=== PATIENT | female | born 1965 | race Caucasian/White ===

== ENCOUNTER 2016-12-10 14:11 | Emergency (ER) | payer SELFPAY ==
[~2016-12-10] VITALS: Ht 172.7 cm; Wt 51.0 kg
[~2016-12-10 14:11] MED LIST: DIAZ10 PO; LORA-392 PO; REME45TA PO
[2016-12-10 14:15] VITALS: BP 119/74; PULSE 120; RESP 16; TEMP 98.4; O2SAT 98
[2016-12-10] MEDS ORDERED: SODIUM CHLORIDE 0.9% FLUSH 10 ML FLUSH IV FLUSH PRN (14:30)
[2016-12-10 14:34] VITALS: RESP 16; O2SAT 100
[2016-12-10] MEDS ORDERED: HYDR-3535 PO (14:34)
[2016-12-10] MEDS ORDERED: REME30TA PO (14:34)
[2016-12-10] MEDS ORDERED: XANA2TAB2 PO (14:34)
--- NOTE | 2016-12-10 14:37 | PD ---
HPI Chief Complaint: Pain: Acute or Chronic Time Seen by Provider: 14:21 Travel History International Travel<30 days: No Contact w/Intl Traveler<30days: No Traveled to known affect area: No History of Present Illness HPI The patient was seen and examined in the presence of the nurse. Patient complains of abdominal pain. Location is left lower quadrant. Duration is 2 months. Started out mild and she thought it might go away but it is persisted and the last few days has been more severe. She's not had any evaluation other. No alleviating factors. No documented fever. No vomiting or diarrhea. She's been eating without any change in the pain. No urinary complaints. PFSH Past Medical History Hx Anticoagulant Therapy: No Anxiety: Yes Diabetes: No Diminished Hearing: No Tetanus Vaccination: > 5 Years Influenza Vaccination: No ?: Not Menopausal: Yes Ectopic : Yes (20 YEARS AGO) Tubal Ligation: Yes (20 YEARS AGO) Past Surgical History Gynecologic Surgery: Yes (LEFT OOPHRECTOMY) Social History Alcohol Use: No Tobacco Use: Yes (5 CIGS PER DAY) Substance Use: No (DENIES) Allergies-Medications (Allergen,Severity, Reaction): Coded Allergies: No Known Allergies (Verified , 12/10/16) Reported Meds & Prescriptions Reported Meds & Active Scripts Active Reported Lortab (Hydrocodone-Acetaminophen) 10-325 Mg Tab 1 Tab PO BID PRN Xanax (Alprazolam) 2 Mg Tab 2 Mg PO DAILY PRN Remeron (Mirtazapine) 30 Mg Tab 15 Mg PO HS Review of Systems General / Constitutional: No: Fever Eyes: No: Visual changes HENT: No: Headaches Cardiovascular: No: Chest Pain or Discomfort Respiratory: No: Shortness of Breath Gastrointestinal: Positive: Abdominal Pain Genitourinary: No: Dysuria Musculoskeletal: No: Pain Skin: No Rash Neurologic: No: Weakness Psychiatric: No: Depression Endocrine: No: Polydipsia Hematologic/Lymphatic: No: Easy Bruising Physical Exam Narrative GENERAL: Well-nourished, well-developed patient with abdominal pain. SKIN: Focused skin assessment reveals no rash and nodules. Skin is Warm and dry. HEAD: Atraumatic. Normocephalic. EYES: Pupils equal and round. No scleral icterus. No injection or drainage. ENT: No nasal bleeding or discharge. Mucous membranes pink and moist. NECK: Trachea midline. No JVD. CARDIOVASCULAR: Regular rate and rhythm. No murmur appreciated. RESPIRATORY: No accessory muscle use. Clear to auscultation. Breath sounds equal bilaterally. GASTROINTESTINAL: Abdomen soft, has some diffuse generalized tenderness but worse in the left lower quadrant. No rebound or guarding. nondistended. Hepatic and splenic margins not palpable. MUSCULOSKELETAL: No obvious deformities. No clubbing. No cyanosis. No edema. NEUROLOGICAL: Awake and alert. No obvious cranial nerve deficits. Motor grossly within normal limits. Normal speech. PSYCHIATRIC: Appropriate mood and affect; insight and judgment normal. Data Data Last Documented VS Vital Signs Date Time Temp Pulse Resp B/P Pulse Ox O2 Delivery O2 Flow Rate FiO2 12/10/16 14:34 16 100 Room Air 12/10/16 14:15 98.4 120 119/74 Orders Complete Blood Count With Diff (12/10/16 14:30) Comprehensive Metabolic Panel (12/10/16 14:30) Lipase (12/10/16 14:30) Prothrombin Time / Inr (Pt) (12/10/16 14:30) Act Partial Throm Time (Ptt) (12/10/16 14:30) Urinalysis - C+S If Indicated (12/10/16 14:30) Ct Abd/Pel W Iv Contrast(Rout) (12/10/16 14:30) Iv Access Insert/Monitor (12/10/16 14:30) Ecg Monitoring (12/10/16 14:30) Oximetry (12/10/16 14:30) Sodium Chloride 0.9% Flush (Ns Flush) (12/10/16 14:30) Iohexol 350 Inj (Omnipaque 350 Inj) (12/10/16 15:08) Labs Laboratory Tests Test 12/10/16 14:45 White Blood Count 10.8 TH/MM3 Red Blood Count 3.65 MIL/MM3 Hemoglobin 12.4 GM/DL Hematocrit 36.1 % Mean Corpuscular Volume 98.9 FL Mean Corpuscular Hemoglobin 34.1 PG Mean Corpuscular Hemoglobin 34.5 % Concent Red Cell Distribution Width 12.6 % Platelet Count 239 TH/MM3 Mean Platelet Volume 8.8 FL Neutrophils (%) (Auto) 73.2 % Lymphocytes (%) (Auto) 21.6 % Monocytes (%) (Auto) 4.4 % Eosinophils (%) (Auto) 0.3 % Basophils (%) (Auto) 0.5 % Neutrophils # (Auto) 7.9 TH/MM3 Lymphocytes # (Auto) 2.3 TH/MM3 Monocytes # (Auto) 0.5 TH/MM3 Eosinophils # (Auto) 0.0 TH/MM3 Basophils # (Auto) 0.1 TH/MM3 CBC Comment DIFF FINAL Differential Comment Prothrombin Time 10.4 SEC Prothromb Time International 0.9 RATIO Ratio Activated Partial 26.3 SEC Thromboplast Time Urine Color YELLOW Urine Turbidity CLEAR Urine pH 6.5 Urine Specific [place] 1.010 Urine Protein NEG mg/dL Urine Glucose (UA) NEG mg/dL Urine Ketones TRACE mg/dL Urine Occult Blood NEG Urine Nitrite NEG Urine Bilirubin NEG Urine Leukocyte Esterase NEG Urine RBC 0-3 /hpf Urine WBC 0-2 /hpf Urine Squamous Epithelial 0-5 /hpf Cells Microscopic Urinalysis Comment CULT NOT INDICATED Sodium Level 140 MEQ/L Potassium Level 3.7 MEQ/L Chloride Level 103 MEQ/L Carbon Dioxide Level 26.9 MEQ/L Anion Gap 10 MEQ/L Blood Urea Nitrogen 9 MG/DL Creatinine 0.64 MG/DL Estimat Glomerular Filtration 97 ML/MIN Rate Random Glucose 95 MG/DL Calcium Level 9.1 MG/DL Total Bilirubin 0.4 MG/DL Aspartate Amino Transf 18 U/L (AST/SGOT) Alanine Aminotransferase 20 U/L (ALT/SGPT) Alkaline Phosphatase 56 U/L Total Protein 7.2 GM/DL Albumin 4.3 GM/DL Lipase 107 U/L [facility] Medical Decision Making Medical Screen Exam Complete: Yes Emergency Medical Condition: Yes Medical Record Reviewed: Yes Differential Diagnosis Diverticulitis, colitis, irritable bowel syndrome, gastroparesis Narrative Course I have reviewed the patient's electronic medical record. Was here in 2010 for tremulousness IV placed CBC is normal Metabolic profile is normal LFTs are normal Lipase is normal Coagulation studies are normal Urinalysis is clean CT of abdomen and pelvis is normal, diverticulosis is noted but no cause for her acute pain Recommend primary care follow-up Diagnosis Primary Impression: Abdominal pain Qualified Code: R10.32 - Left lower quadrant pain Additional Instructions: The patient was advised to follow up with their physician and return if they worsen. Med/Other Pt SpecificInfo: Other Disposition: 01 DISCHARGE HOME Condition: Stable Mian Marmolejo MD Dec 10, 2016 14:37
[2016-12-10 14:55] LABS: BLOOD, URINE NEG (NEG); GLUCOSE,URINE NEG (NEG); KETONE, URINE TRACE mg/dL (NEG); NITRITE,URINE NEG (NEG); PH, URINE 6.5 (5.0-8.5)
[2016-12-10 15:03] LABS: CHLORIDE 103 MEQ/L (98-107); COMMENT (UR) CULT NOT INDICATED; CULTURE IF INDICATED CULT NOT INDICATED; POTASSIUM 3.7 MEQ/L (3.5-5.1); RBC, URINE 0-3 /hpf (0-3); SODIUM (NA) 140 MEQ/L (136-145); SQUAMOUS EPITHELIAL CELL URINE 0-5 /hpf (0-5); URINE COLOR YELLOW (YELLW/STRAW); WBC, URINE 0-2 /hpf (0-5)
[2016-12-10 15:06] LABS: AUTOMATED NEUTROPHIL # 7.9 TH/MM3 (1.8-7.7); BASOPHIL # 0.1 TH/MM3 (0-0.2); BASOPHIL % 0.5 % (0.0-2.0); EOSINOPHIL % 0.3 % (0.0-4.0); HEMATOCRIT 36.1 % (35.0-46.0); HEMO FLAGS DIFF FINAL; LYMPH % 21.6 % (9.0-44.0); LYMPHOCYTE # 2.3 TH/MM3 (1.0-4.8); MEAN CELL VOLUME 98.9 FL (80.0-100.0); MEAN CORPUSCULAR HEMOGLOBIN 34.1 PG (27.0-34.0); MEAN CORPUSCULAR HGB CONC 34.5 % (32.0-36.0); MONO % 4.4 % (0.0-8.0); NEUT % 73.2 % (16.0-70.0); PLATELET COUNT 239 TH/MM3 (150-450); RED BLOOD COUNT 3.65 MIL/MM3 (4.00-5.30); RED CELL DISTRIBUTION WIDTH 12.6 % (11.6-17.2); WHITE BLOOD COUNT 10.8 TH/MM3 (4.0-11.0)
[2016-12-10 15:08] LABS: ANION GAP 10 MEQ/L (5-15); APTT (PATIENT) 26.3 SEC (24.3-30.1); BICARBONATE 26.9 MEQ/L (21.0-32.0); BLOOD UREA NITROGEN 9 MG/DL (7-18); INTERNATIONAL NORMALIZED RATIO 0.9 RATIO; PROTHROMBIN TIME - PATIENT 10.4 SEC (9.8-11.6)
[2016-12-10] MEDS ORDERED: IOHEXOL 350 MG/ML 10 ML VIAL (for RAD DIAG) IV ONE (15:08)
[2016-12-10 15:11] LABS: ALT (GPT) 20 U/L (10-53); AST (GOT) 18 U/L (15-37); GLOMERULAR FILTRATION RATE 97 ML/MIN (>89)
[2016-12-10 15:12] LABS: TOTAL BILIRUBIN ADULT 0.4 MG/DL (0.2-1.0)
--- NOTE | 2016-12-10 15:13 | RADHPO ---
EXAM DATE/TIME: 12/10/2016 14:45 [facility] COMPARISON: No previous studies available for comparison. INDICATIONS : Worsening left lower quadrant pain. IV CONTRAST: 80 cc Omnipaque 350 (iohexol) IV ORAL CONTRAST: No oral contrast ingested. RADIATION DOSE: 4.46 CTDIvol (mGy) MEDICAL HISTORY : None SURGICAL HISTORY : Tubal ligation. Left oophorectomy. ENCOUNTER: Initial ACUITY: 2 months PAIN SCALE: 3/10 LOCATION: Left lower quadrant TECHNIQUE: Volumetric scanning of the abdomen and pelvis was performed. Using automated exposure control and ad justment of the mA and/or kV according to patient size, radiation dose was kept as low as reasonably achievable to obtain optimal diagnostic quality images. FINDINGS: Gallbladder, kidneys, spleen, pancreas, bilateral adrenal glands are normal in appearance. Atheroscle rotic plaquing of the aorta is noted. Urinary bladder, uterus and ovaries are unremarkable. There is diverticulosis of the sigmoid colon. There is no evidence for acute diverticulitis. No evidence of theo wel obstruction, free fluid or free air. The appendix is normal. Small bowel loops are unremarkable. No adenopathy or aneurysm. Osseous structures are intact. CONCLUSION: 1. Mild atherosclerosis. 2. Diverticulosis. Thiago Mdidleton MD on December 10, 2016 at 15:10 Board Certified Radiologist. This report was verified electronically.
[2016-12-10 15:14] LABS: ALKALINE PHOSPHATASE 56 U/L (45-117)
[2016-12-10 16:02] VITALS: BP 119/76
== END 2016-12-10 16:03 | disposition home or self-care (01) ==
LOC: PHED 14:11
DX: R10.32 Left lower quadrant pain (principal); Z72.0 Tobacco use; K57.90 Diverticulosis of intestine, part unspecified, without perforation or abscess without bleeding
CPT/HCPCS: 74177; 80053; 81001; 83690; 85025; 85610; 85730; 99284; Q9967

== ENCOUNTER 2017-11-11 02:50 | Emergency (ER) | payer SELFPAY ==
[~2017-11-11] VITALS: Ht 172.7 cm; Wt 47.7 kg
[~2017-11-11 02:50] MED LIST changes: -DIAZ10 PO; +HYDR-3535 PO; -LORA-392 PO; +REME30TA PO; -REME45TA PO; +XANA2TAB2 PO
[2017-11-11 03:00] VITALS: BP 109/79; PULSE 94; RESP 18; TEMP 97.6; O2SAT 99
--- NOTE | 2017-11-11 04:09 | PD ---
HPI Chief Complaint: Fall Time Seen by Provider: 03:59 Travel History International Travel<30 days: No Contact w/Intl Traveler<30days: No Traveled to known affect area: No History of Present Illness HPI 52-year-old female presents for evaluation of left-sided scalp laceration. Prior to arrival she was walking in the dark to the bathroom when she hit her scalp on the corner of the wall. Denies loss of consciousness. She has minor pain at the site of the laceration. Denies any global headache, confusion or amnesia, nausea or vomiting, blurred vision, neck pain, injury to the torso or extremities. She has no other complaints at this time. Last tetanus vaccination greater than 5 years ago. PFSH Past Medical History Hx Anticoagulant Therapy: No Anxiety: Yes Diabetes: No Diminished Hearing: No Immunizations Current: Yes Tetanus Vaccination: > 5 Years ?: Not Menopausal: Yes Ectopic : Yes (20 YEARS AGO) Tubal Ligation: Yes (20 YEARS AGO) Past Surgical History Gynecologic Surgery: Yes (LEFT OOPHRECTOMY) Social History Alcohol Use: No Tobacco Use: Yes (5 CIGS PER DAY) Substance Use: No (DENIES) Allergies-Medications (Allergen,Severity, Reaction): Coded Allergies: No Known Allergies (Verified , 12/10/16) Reported Meds & Prescriptions Reported Meds & Active Scripts Active Reported Lortab (Hydrocodone-Acetaminophen) 10-325 Mg Tab 1 Tab PO BID PRN Xanax (Alprazolam) 2 Mg Tab 2 Mg PO DAILY PRN Remeron (Mirtazapine) 30 Mg Tab 15 Mg PO HS Review of Systems Except as stated in HPI: all other systems reviewed are Neg Physical Exam Narrative GENERAL: Well-developed well-nourished female no acute distress SKIN: Warm and dry. 3 cm vertical laceration to the left frontal scalp. HEAD: Skin as noted above with no underlying bony step-off. Normocephalic. EYES: Pupils equal and round. No scleral icterus. No injection or drainage. ENT: No nasal bleeding or discharge. Mucous membranes pink and moist. NECK: Trachea midline. No JVD. CARDIOVASCULAR: Regular rate and rhythm. No murmur appreciated. RESPIRATORY: No accessory muscle use. Clear to auscultation. Breath sounds equal bilaterally. MUSCULOSKELETAL: No obvious deformities. NEUROLOGICAL: Awake and alert. No obvious cranial nerve deficits. Motor grossly within normal limits. Normal speech. Data Data Last Documented VS Vital Signs Date Time Temp Pulse Resp B/P (MAP) Pulse Ox O2 Delivery O2 Flow Rate FiO2 11/11/17 03:00 97.6 94 18 109/79 (89) 99 Orders Orders Tetanus/Diphtheria Tox Adult (Tetanus/Di (11/11/17 04:15) Lidocai-Epi 1%-1:100,000 Inj (Xylocaine- (11/11/17 04:15) Lidocai-Epi 1%-1:100,000 Inj (Xylocaine- (11/11/17 04:14) Ed Discharge Order (11/11/17 04:35) [facility] Medical Decision Making Medical Screen Exam Complete: Yes Emergency Medical Condition: Yes Medical Record Reviewed: Yes Differential Diagnosis Scalp laceration, skull fracture, intracranial hemorrhage Narrative Course 52-year-old female presents with a left frontal scalp laceration with no evidence of skull fracture or neurologic symptoms to suggest intracranial bleeding. Tetanus status updated. The laceration will be repaired with jojo , she verbally consents. Procedures Procedure Narrative LACERATION LOCATION: Scalp LENGTH: 3 cm NUMBER OF STITCHES/JOJO: 9 REPAIR: The area of the laceration was prepped with Betadine and sterilely draped. The laceration was infiltrated with 1% lidocaine with epinephrine]. The wound was copiously irrigated and explored without evidence of foreign body , tendon injury or neurovascular injury. The wound was closed using jojo. This was a single layer repair. A sterile dressing was applied. The patient was advised to keep the dressing clean and dry. Patient tolerated the procedure well. Diagnosis Primary Impression: Scalp laceration Additional Instructions: Wash the wound gently with soap and water and apply antibiotic cream twice a day. Return in 7-10 days for staple removal. Med/Other Pt SpecificInfo: Wound Care Disposition: 01 DISCHARGE HOME Condition: Stable Harvinder Samson Nov 11, 2017 04:09
[2017-11-11] MEDS ORDERED: LIDOCAINE 1%/EPINEPHrine 1:100,000 SOLN 30 ML VIAL ONE (04:14)
[2017-11-11] MEDS ORDERED: LIDOCAINE 1%/EPINEPHrine 1:100,000 SOLN 20 ML VIAL INFIL ONE (04:15)
[2017-11-11] MEDS ORDERED: TETANUS/DIPHTHERIA TOXOID ADULT 0.5 ML VIAL IM ONE (04:15)
== END 2017-11-11 04:42 | disposition home or self-care (01) ==
LOC: NEPD 02:50
DX: S01.01XA Laceration without foreign body of scalp, initial encounter (principal); F17.210 Nicotine dependence, cigarettes, uncomplicated; W22.01XA Walked into wall, initial encounter; Y93.01 Activity, walking, marching and hiking; Z23 Encounter for immunization
CPT/HCPCS: 12002; 90471; 90714

== ENCOUNTER 2017-11-22 18:14 | Emergency (ER) | payer SELFPAY ==
[~2017-11-22] VITALS: Ht 172.7 cm; Wt 47.7 kg
[2017-11-22 18:34] VITALS: BP 123/63; PULSE 91; RESP 18; TEMP 98.7; O2SAT 100
--- NOTE | 2017-11-22 20:53 | PD ---
HPI Chief Complaint: Suture removal Time Seen by Provider: 20:11 Travel History International Travel<30 days: No Contact w/Intl Traveler<30days: No Traveled to known affect area: No History of Present Illness HPI 52-year-old female presents to the emergency room for staple removal. Patient had 9 jojo placed 9 days ago after striking her head against the corner of a wall. She has been keeping the area clean and dry. She has been applying a staff to the area. Denies any drainage or worsening pain. Patient states she feels like she is moving slower since hitting her head. She denies loss of consciousness, nausea, vomiting, dizziness, double vision, or severe headache. She is not on any blood thinners. PFSH Past Medical History Hx Anticoagulant Therapy: No Anxiety: Yes Diabetes: No Diminished Hearing: No Immunizations Current: Yes Menopausal: Yes Ectopic : Yes (20 YEARS AGO) Tubal Ligation: Yes (20 YEARS AGO) Past Surgical History Gynecologic Surgery: Yes (LEFT OOPHRECTOMY) Social History Alcohol Use: No Tobacco Use: Yes (5 CIGS PER DAY) Substance Use: No (DENIES) Allergies-Medications (Allergen,Severity, Reaction): Coded Allergies: No Known Allergies (Verified , 12/10/16) Reported Meds & Prescriptions Reported Meds & Active Scripts Active Bactrim DS (Sulfamethoxazole-Trimethoprim) 800-160 Mg Tab 1 Tab PO BID Reported Lortab (Hydrocodone-Acetaminophen) 10-325 Mg Tab 1 Tab PO BID PRN Xanax (Alprazolam) 2 Mg Tab 2 Mg PO DAILY PRN Remeron (Mirtazapine) 30 Mg Tab 15 Mg PO HS Review of Systems Except as stated in HPI: all other systems reviewed are Neg Physical Exam Narrative GENERAL: Well-nourished, well-developed female no acute distress. Afebrile. Ambulatory. SKIN: Focused skin assessment warm/dry. 9 intact jojo approximating skin on the left temporal scalp. There is surrounding erythema. Some impetiginization. No drainage. HEAD: Normocephalic. EYES: No scleral icterus. No injection or drainage. NECK: Supple, trachea midline. No JVD or lymphadenopathy. CARDIOVASCULAR: Regular rate and rhythm without murmurs, gallops, or rubs. RESPIRATORY: Breath sounds equal bilaterally. No accessory muscle use. NEUROLOGICAL: Awake and alert. Cranial nerves II through XII intact. Motor and sensory grossly within normal limits. Five out of 5 muscle strength in all muscle groups. Normal speech. Data Data Last Documented VS Vital Signs Date Time Temp Pulse Resp B/P (MAP) Pulse Ox O2 Delivery O2 Flow Rate FiO2 11/22/17 18:34 98.7 91 18 123/63 (83) [address] Brain W/O Iv Contrast(Rout) (11/22/17 ) Ed Discharge Order (11/22/17 21:28) MDM Medical Decision Making Medical Screen Exam Complete: Yes Emergency Medical Condition: Yes Medical Record Reviewed: Yes Differential Diagnosis Concussion, suture removal, wound infection Narrative Course 52-year-old female presents to the emergency room for staple removal. Patient had 9 jojo placed 9 days ago after hitting her head on the corner. She denies loss consciousness, headache, nausea, vomiting, dizziness, or double vision. She is not on blood thinners. No focal neurological deficits. Patient reports feeling sluggish and slow to respond since hitting her head and is concerned about concussion. CT ordered in triage is negative. Patient was given concussion precautions. Told to follow-up with the primary care physician or return for worsening symptoms. She understands and agrees to plan Diagnosis Primary Impression: Suture reaction Qualified Codes: T81.89XA - Other complications of procedures, not elsewhere classified, initial encounter Additional Impression: Concussion Qualified Codes: S06.0X0A - Concussion without loss of consciousness, initial encounter Referrals: Primary Care Physician Additional Instructions: Rest and drink plenty of fluids. Take Bactrim as directed, until gone. Follow up with a primary care physician. Return to emergency room for worsening symptoms, as discussed. Med/Other Pt SpecificInfo: Prescription(s) given Scripts Sulfamethoxazole-Trimethoprim (Bactrim DS) 800-160 Mg Tab 1 TAB PO BID for Infection, #20 TAB 0 Refills Prov: Kristina Santos FARIBA 11/22/17 Disposition: 01 DISCHARGE HOME Condition: Stable Silvia Carey Nov 22, 2017 20:53
--- NOTE | 2017-11-22 21:26 | RADRPT ---
EXAM DATE/TIME: 11/22/2017 20:15 [facility] COMPARISON: No previous studies available for comparison. INDICATIONS : Trauma 8 days ago RADIATION DOSE: 47.68 CTDIvol (mGy) MEDICAL HISTORY : None SURGICAL HISTORY : Tubal ligation. Left oophrectomy ENCOUNTER: Initial ACUITY: 1 day PAIN SCALE: 0/10 LOCATION: cranial TECHNIQUE: Multiple contiguous axial images were obtained of the head. Using automated exposure control and adj ustment of the mA and/or kV according to patient size, radiation dose was kept as low as reasonably a chievable to obtain optimal diagnostic quality images. DICOM format image data is available electro nically for review and comparison. FINDINGS: CEREBRUM: The ventricles are normal for age. No evidence of midline shift, mass lesion, hemorrhage or acute in farction. No extra-axial fluid collections are seen. POSTERIOR FOSSA: The cerebellum and brainstem are intact. The 4th ventricle is midline. The cerebellopontine angle i s unremarkable. EXTRACRANIAL: The visualized portion of the orbits is intact. Skin jojo are seen at the left frontal scalp. SKULL: The calvaria is intact. No evidence of skull fracture. CONCLUSION: No intracranial abnormality is seen. Eduin Coles MD on November 22, 2017 at 21:23 Board Certified Radiologist. This report was verified electronically.
[2017-11-22] MEDS ORDERED: BACT800T5 PO (21:33)
== END 2017-11-22 21:30 | disposition home or self-care (01) ==
LOC: NED 18:14 → NEPK 21:30
DX: T81.89XA Other complications of procedures, not elsewhere classified, initial encounter (principal); L53.9 Erythematous condition, unspecified; S06.0X0D Concussion without loss of consciousness, subsequent encounter; S01.00XD Unspecified open wound of scalp, subsequent encounter; W22.01XD Walked into wall, subsequent encounter; F41.9 Anxiety disorder, unspecified; F17.210 Nicotine dependence, cigarettes, uncomplicated
CPT/HCPCS: 70450; 99283